=== PATIENT | female | born 1965 | race Caucasian/White ===

== ENCOUNTER 2024-02-12 10:39 | Emergency (ER) | payer BC ==
[2024-02-12] MEDS ORDERED: Ibuprofen 200 MG TAB ONE (11:19)
== END 2024-02-12 12:09 | disposition home or self-care (01) ==
LOC: CSHERS 10:39
DX: S51.051A Open bite, right elbow, initial encounter (principal); W54.0XXA Bitten by dog, initial encounter
CPT/HCPCS: 90471; 90715